=== PATIENT | female | born 1990 | race American Indian/Alaskan Native ===

== ENCOUNTER 2021-02-20 00:04 | Inpatient (IN) | payer MEDICAID ==
[2021-02-20] MEDS ORDERED: BUTORPHANOL 2 MG/1 ML INJ IV PRN ×3 (00:51→02:00)
[2021-02-20] MEDS ORDERED: CARBOPROST TROMETHAMINE 250 MCG/1 ML INJ IM PRN ×2 (00:51→02:00)
[2021-02-20] MEDS ORDERED: METHYLERGONOVINE MALEATE 0.2 MG/ML VIAL IM PRN (00:51)
[2021-02-20] MEDS ORDERED: MINERAL OIL 30 ML ORAL LIQD PO PRN (00:51)
[2021-02-20] MEDS ORDERED: ePHEDrine SULFATE 50 MG/1 ML INJ IV PRN ×2 (00:51→10:56)
[2021-02-20] MEDS ORDERED: fentaNYL 100 MCG/2 ML INJ IV PRN ×2 (00:51→02:00)
[2021-02-20] MEDS ORDERED: ACETAMINOPHEN 325 MG TAB PO PRN ×3 (00:51→16:10)
[2021-02-20] MEDS ORDERED: miSOPROStol 200 MCG TAB PR PRN (00:51)
[2021-02-20] MEDS ORDERED: LIDOCAINE (2%) 20 MG/1 ML VIAL 20 ML MDV INFILTRATI ONE ×2 (00:51→14:09)
[2021-02-20] MEDS ORDERED: LOPERAMIDE 2 MG CAP PO PRN ×2 (00:51→02:00)
[2021-02-20] MEDS ORDERED: OXYTOCIN 10 UNIT/1 ML INJ IM PRN ×2 (00:51→02:00)
[2021-02-20] MEDS ORDERED: TERBUTALINE 1 MG/1 ML INJ SUB-Q PRN (00:51)
[2021-02-20 00:59] LABS: Hemoglobin 11.4 gm/dl (10.1-14.3); Mean Corpuscular HGB Conc 35 % (30-34); Mean Corpuscular Volume 96 fl (79-97); Platelet Count 175 K/mm3 (140-440); Red Blood Count 3.45 M/mm3 (3.65-5.03); Red Cell Distribution Width 13.4 % (13.2-15.2)
[2021-02-20] MEDS ORDERED: OXYTOCIN DRIP 30 UNITS/500 ML BAG IV SCH ×3 (01:00→02:00)
--- NOTE | 2021-02-20 02:12 | History and Physical Report ---
History of Present Illness Date of examination: 02/20/21 Date of admission: 02/20/21 00:51 Chief complaint: c/o SROM and occ uc History of present illness: 30 y/o presents to [facility] @ 39.3 wks with c/o SROM with occ uc. She denies VB and admits to active FM. Pt [facility] @ 26 2/7 wks. 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 Pt had marginal placenta previa which has resolved. She is a smoker. Reports no surgical hx. Family hx of Leukemia. Her GBS is neg. Pt was admitted to L&D for augmentation. Past History Past Medical History: other (anemia, + AB SCREEN aNTI Luciana, OBESITY, S>D) Past Surgical History: no surgical history CASE FINISHER History: chlamydia, herpes, trichomonas Family/Genetic History: other (LEUKEMIA) Social history: single, smoking, full code - Obstetrical History Expected Date of Delivery: 02/24/21 Actual Gestation: 39 Week(s) 3 Day(s) : 1 Para: 0 Medications and Allergies Allergies Allergy/AdvReac Type Severity Reaction Status Date / Time No Known Allergies Allergy Unverified 02/19/21 21:37 Active Meds: Active Medications Acetaminophen (Acetaminophen 325 Mg Tab) 650 mg PO Q4H PRN PRN Reason: Pain, Mild (1-3) Acetaminophen (Acetaminophen 325 Mg Tab) 650 mg PO Q4H PRN PRN Reason: Pain, Mild (1-3) Butorphanol Tartrate (Butorphanol 2 Mg/1 Ml Inj) 1 mg IV Q2H PRN PRN Reason: Pain, Moderate(4-6) LABOR PAIN Butorphanol Tartrate (Butorphanol 2 Mg/1 Ml Inj) 2 mg IV Q2H PRN PRN Reason: Pain , Severe (7-10) Butorphanol Tartrate (Butorphanol 2 Mg/1 Ml Inj) 1 mg IV Q2H PRN PRN Reason: Pain, Moderate(4-6) LABOR PAIN Butorphanol Tartrate (Butorphanol 2 Mg/1 Ml Inj) 2 mg IV Q2H PRN PRN Reason: Pain , Severe (7-10) Carboprost Tromethamine (Carboprost Tromethamine 250 Mcg/1 Ml Inj) 250 mcg IM ONCE PRN PRN Reason: Uterine Bleeding Carboprost Tromethamine (Carboprost Tromethamine 250 Mcg/1 Ml Inj) 250 mcg IM ONCE PRN PRN Reason: Uterine Bleeding Ephedrine Sulfate (Ephedrine Sulfate 50 Mg/1 Ml Inj) 10 mg IV Q2M PRN PRN Reason: Hypotension Fentanyl (Fentanyl 100 Mcg/2 Ml Inj) 100 mcg IV Q2H PRN PRN Reason: Pain,Severe (7-10) LABOR PAIN Fentanyl (Fentanyl 100 Mcg/2 Ml Inj) 100 mcg IV Q2H PRN PRN Reason: Pain,Severe (7-10) LABOR PAIN Oxytocin/Sodium Chloride (Pitocin/Ns 30 Unit/500ml) 30 units in 500 mls @ 2 mls/hr IV TITR RENNY; Protocol Last Admin: 02/20/21 02:01 Dose: 2 mls/hr, 2 mls/hr Documented by: Lactated Ringer's (Lactated Ringers) 1,000 mls @ 125 mls/hr IV DIRECT RENNY Last Admin: 02/20/21 02:00 Dose: 125 mls/hr Documented by: Oxytocin/Sodium Chloride (Pitocin/Ns 30 Unit/500ml) 30 units in 500 mls @ 40 mls/hr IV TITR RENNY; Protocol Oxytocin/Sodium Chloride (Pitocin/Ns 30 Unit/500ml) 30 units in 500 mls @ 2 mls/hr IV TITR RENNY; Protocol Loperamide HCl (Loperamide 2 Mg Cap) 2 mg PO ONCE PRN PRN Reason: give with Hemabate Loperamide HCl (Loperamide 2 Mg Cap) 2 mg PO ONCE PRN PRN Reason: give with Hemabate Methylergonovine Maleate (Methylergonovine Maleate 0.2 Mg/Ml Vial) 0.2 mg IM ONCE PRN PRN Reason: Uterine Bleeding Mineral Oil (Mineral Oil 30 Ml Oral Liqd) 30 ml PO QHS PRN PRN Reason: Constipation Misoprostol (Misoprostol 200 Mcg Tab) 800 mcg AK ONCE PRN PRN Reason: Uterine Bleeding Oxytocin (Oxytocin 10 Unit/1 Ml Inj) 10 unit IM ONCE PRN PRN Reason: Uterine Bleeding Oxytocin (Oxytocin 10 Unit/1 Ml Inj) 10 unit IM ONCE PRN PRN Reason: Uterine Bleeding Terbutaline Sulfate (Terbutaline 1 Mg/1 Ml Inj) 0.25 mg SUB-Q ONCE PRN PRN Reason: Hyperstimulation/Hypertonicity Review of Systems All systems: negative Eyes: deferred Ears, nose, mouth and throat: deferred Breasts: normal Genitourinary: normal appearance Rectal Exam: normal exam-external/orifice - Vital Signs Vital signs: Vital Signs Pulse Pulse Ox 89 98 02/20/21 01:26 02/20/21 01:26 Temp Pulse Resp BP Pulse Ox 98.3 F 92 H 120/72 98 02/20/21 01:29 02/20/21 02:01 02/20/21 01:28 02/20/21 02:01 - Physical Exam Breasts: Positive: normal Abdomen: Positive: normal appearance, soft, normal bowel sounds Genitourinary (Female): Positive: normal external genitalia, normal perenium Vulva: both: normal Vagina: Positive: normal moisture Uterus: Positive: enlarged, normal contour, other (GRAVID) Adnexa: both: normal Anus/Rectum: Positive: normal perianal skin Extremities: Positive: normal - Obstetrical FHR: auscultation normal, category 1 Uterine Contraction Monitor Mode: External Cervical Dilatation: 1 Cervical Effacement Percentage: 50 station: -3 Uterine Contraction Pattern: Irregular Uterine Tone Measurement Phase: Resting Uterine Contraction Intensity: Mild Results Result Diagrams: 02/20/21 00:30 Abnormal lab results 02/20/21 Range/Units 00:30 RBC 3.45 L (3.65-5.03) M/mm3 MCH 33 H (28-32) pg MCHC 35 H (30-34) % All other labs normal. Assessment and Plan A: IUP@ 39.3 wks with SROM (cl) + AB screen Anti Luciana HO Anemia HSV II Obesity S>D 38 % tile 01/01 Smoker GBS neg P: Admit to L&D for augmentation Continuous monitoring Pain med/Epidural prn Pitocin augmentation Anticipate - Patient Problems (1) Supervision of normal IUP (intrauterine ) in primigravida Current Visit: Yes Status: Acute
[2021-02-20] MEDS: LACTATED RINGERS 1,000 ML IV SCH ×3 (02:30→11:43)
[2021-02-20] MEDS: BUTORPHANOL 2 MG/1 ML INJ IV PRN ×2 (05:46→08:10)
[2021-02-20] MEDS ORDERED: NALOXONE 2 MG/2 ML INJ IV PRN (10:56)
--- NOTE | 2021-02-20 10:58 | Anesthesia Consultation ---
Anesthesia Consult and Med Hx Date of service: 02/20/21 - Airway Anesthetic Teeth Evaluation: Poor ROM Head & Neck: Adequate Mental/Hyoid Distance: Adequate Mallampati Class: Class III Intubation Access Assessment: Possibly Difficult - Pulmonary Exam CTA: Yes - Cardiac Exam Cardiac Exam: RRR - Pre-Operative Health Status ASA Pre-Surgery Classification: ASA3 Proposed Anesthetic Plan: Epidural - Pulmonary Hx Smoking: Yes (quit 2019) Hx Asthma: No Hx Respiratory Symptoms: No SOB: No COPD: No Home Oxygen Therapy: No Hx Pneumonia: No Hx Sleep Apnea: No - Cardiovascular System Hx Hypertension: No Hx Coronary Artery Disease: No Hx Heart Attack/AMI: No Hx Angina: No Hx Percutaneous Transluminal Coronary Angioplasty (PTCA): No Hx Cardia Arrhythmia: No Hx Pacemaker: No Hx Internal Defibrillator: No Hx Valvular Heart Disease: No Hx Heart Murmur: No Hx Peripheral Vascular Disease: No - Central Nervous System Hx Neuromuscular Disorder: No Hx Seizures: No CVA: No Hx Back Pain: Yes Hx Psychiatric Problems: No - Gastrointestinal Hx Ulcer: No Hx Gastroesophageal Reflux Disease: Yes - Endocrine Hx Renal Disease: No Hx End Stage Renal Disease: No Hx Cirrhosis: No Hx Liver Disease: No Hx Insulin Dependent Diabetes: No Hx Non-Insulin Dependent Diabetes: No Hx Thyroid Disease: No Hx Hypothyroidism: No Hx Hyperthyroidism: No - Hematic Hx Anemia: No Hx Sickle Cell Disease: No - Other Systems Hx Alcohol Use: No Hx Substance Use: No Hx Cancer: No Hx Obesity: Yes
[2021-02-20] MEDS ORDERED: fentaNYL-BUPIV 2 MCG/ML-0.125% 200 MCG/100 ML BAG EPIDURAL SCH (11:00)
--- NOTE | 2021-02-20 11:19 | Progress Note ---
Labor Epidural - Labor Epidural Start Time: 10:00 Stop Time: 10:11 Performed by:: DEANA RAMÍREZ Procedure: Patient is requesting a laboring epidural for laboring pain. Patient IDed, H&P reviewed, all questions and concerns were answered, and consent was signed. Timeout was performed at bedside. Patient in sitting position. Sterile prep and drape was performed. [3] ml of 1% lidocaine skin wheal at L[3]- L [4]. 18- gauge Skinny epidural needle was advanced to loss of resistance with saline technique 7cm. Negative CSF negative blood. Epidural catheter advanced to [12] centimeters. [NEGATIVE] Aspiration [NEGATIVE] test dose. Sterile dressing applied. Patient tolerated procedure.
--- NOTE | 2021-02-20 11:31 | Event Note ---
Date: 02/20/21 Assumed care of patient at 10:30 AM. Patient has just received epidural. SVE /-2. Clear amniotic fluid seen leaking from vagina. Reassuring FHR tracing.
[2021-02-20] MEDS ORDERED: valACYclovir 500 MG TAB PO SCH (12:00)
--- NOTE | 2021-02-20 13:32 | Event Note ---
Date: 02/20/21 SVE .
[2021-02-20] MEDS ORDERED: BENZOCAINE/MENTHOL 20/0.5% TOP SPRAY 56 GM TP PRN (16:10)
[2021-02-20] MEDS ORDERED: MAGNESIUM HYDROXIDE (MOM) ORAL LIQD UDC PO PRN (16:10)
[2021-02-20] MEDS ORDERED: diphenhydrAMINE 25 MG CAP PO PRN (16:10)
[2021-02-20] MEDS ORDERED: WITCH HAZEL/ GLYCERIN PAD TP PRN (16:10)
[2021-02-20] MEDS ORDERED: LANOLIN/ZINC/DIMETHICONE (LANSINOH) 7 GM TP PRN (16:10)
--- NOTE | 2021-02-20 16:14 | Procedure Note ---
OB Delivery Note - Delivery Date of Delivery: 02/20/21 - Vaginal Delivery presentation: vertex Delivery position: OA Intrapartum events: shoulder dystocia Delivery induction: none Delivery augmentation: pitocin Delivery monitor: external FHT, external uterine Route of delivery: Delivery placenta: spontaneous Delivery cord: nuchal cord, 3 umbilical vessels Episiotomy: midline Delivery repair: vicryl Anesthesia: epidural Delivery comments: Spontaneous vaginal delivery at 14:51 of liveborn male weighing 8 lb. over 2nd degree midline episiotomy with apgars of 8/9. Epidural anesthesia. Deep variable FHR decelerations just prior to delivery. Second degree midline episiotomy performed to expedite delivery. Tight nuchal cord noted at delivery, reduced manually. Mild right anterior shoulder dystocia, resolved with McRobert's maneuver, rotation of shoulders, and suprapubic pressure. Head to body delivery interval was less than 1 minute. Baby placed skin to skin with mom immediately after delivery. 3 vessel cord double clamped and cut and baby taken to radiant warmer. Baby dried with warm blankets, suctioned with bulb syringe and stimulated. Spontaneous cry and respirations. Spontaneous delivery of intact placenta and membranes by huerta mechanism. EBL 300 cc. Pitocin to IV fluids after delivery of placenta. Fundus firm and midline. 2nd degree midline episio bryon repaired with 2-0 and 3-0 vicryl in usual sterile fashion. No other lacerations noted. Vaginal sweep negative. Sponge count correct. Mother and baby stable in birthing room. Baby moving all extremities well.
--- NOTE | 2021-02-20 20:37 | Post Anesthesia Evaluation ---
- Post Anesthesia Evaluation Patient Participated: Yes Airway Patent: Yes Stable Respiratory Function: Yes Nausea/Vomiting: No Temp > 96.8F: Yes Pain Manageable: Yes Adequeate Hydration: Yes Anesthesia Complications: No Block Receding Appropriately: Yes Patient on Ventilator: No
[2021-02-20] MEDS: HYDROcodone/ACETAMINOPHEN 5-325 MG TAB PO PRN (20:50)
[2021-02-20] MEDS: DOCUSATE SODIUM 100 MG CAP PO SCH (21:50)
[2021-02-20] MEDS: IBUPROFEN 600 MG TAB PO SCH (23:20)
[2021-02-21] MEDS: HYDROcodone/ACETAMINOPHEN 5-325 MG TAB PO PRN ×3 (06:00→22:05)
--- NOTE | 2021-02-21 06:26 | Progress Note ---
Assessment and Plan PPD#1 SAVD doing well 1. Pt educated on pain meds available prn 2. Routine care and await CBC 3. Will discharge in am if stable. Plan of care discussed and pt agreeable. Subjective Date of service: 02/21/21 Principal diagnosis: PPD#1 Interval history: pt c/o pelvic cramping and last pain med taken 10hrs ago. pt is not breast feeding. Vaginal bleeding minimal. Voiding without any difficulty. Objective - Constitutional Vitals: Vital Signs - 12hr 02/20/21 02/20/21 02/21/21 20:16 20:45 00:00 Temperature 99.6 F 98.6 F Pulse Rate 107 H 83 Respiratory 20 16 Rate Blood Pressure 121/70 Blood Pressure 111/62 [Right] O2 Sat by Pulse 96 Oximetry O2 Sat by Pulse 100 Oximetry [ Bilateral] 02/21/21 04:00 Temperature 98.6 F Pulse Rate 74 Respiratory 16 Rate Blood Pressure Blood Pressure 108/79 [Right] O2 Sat by Pulse Oximetry O2 Sat by Pulse Oximetry [ Bilateral] General appearance: Present: no acute distress - Breasts Breasts: normal - Cardiovascular Rhythm: regular Extremities: no ischemia - Gastrointestinal General gastrointestinal: Present: non-tender - Genitourinary Female genitourinary: other (Fundus firm 3cm below the umbilicus) - Neurologic Neurologic: CNII-XII intact - Psychiatric Psychiatric: appropriate mood/affect - Labs CBC & Chem 7: 02/20/21 00:30 Medications & Allergies - Medications Allergies/Adverse Reactions: Allergies No Known Allergies Allergy (Unverified 02/19/21 21:37) Home Medications: Home Medications Medication Instructions Recorded Confirmed Last Taken Type Valacyclovir HCl [Valacyclovir] 1,000 mg PO DAILY 02/20/21 02/20/21 02/20/21 History Active Medications: Generic Name Dose Route Start Last Admin Trade Name Freq PRN Reason Stop Dose Admin Hydrocodone Bitart/Acetaminophen 2 each 02/20/21 16:10 02/20/21 20:50 Hydrocodone/Acetaminophen 5-325 Mg Tab PO 2 each Q6H PRN Administration Pain, Moderate (4-6) Benzocaine/Menthol 1 spray 02/20/21 16:10 Benzocaine/Menthol 20/0.5% Top [place] 56 Gm TP PRN PRN Episiotomy Pain Diphenhydramine HCl 25 mg 02/20/21 16:10 Diphenhydramine 25 Mg Cap PO Q6H PRN Itching Docusate Sodium 100 mg 02/20/21 22:00 02/20/21 21:50 Docusate Sodium 100 Mg Cap PO 100 mg BID RENNY Administration Ibuprofen 600 mg 02/20/21 17:00 02/20/21 23:20 Ibuprofen 600 Mg Tab PO 600 mg Q6H RENNY Administration Magnesium Hydroxide 30 ml 02/20/21 16:10 Magnesium Hydroxide (Mom) Oral Liqd Udc PO HS PRN Constipation Multi-Ingredient Ointment 1 applic 02/20/21 16:10 Lanolin/Zinc/Dimethicone (Lansinoh) 7 Gm TP PRN PRN Sore Nipples Sodium Chloride 10 ml 02/20/21 17:00 Sodium Chloride 0.9% 10 Ml Flush Syringe IV 02/21/21 16:59 PRN NR Witch Anne/Glycerin 1 each 02/20/21 16:10 Witch Anne/ Glycerin Pad TP PRN PRN Hemorrhoid/cleansing/soothing
[2021-02-21 08:18] LABS: Hematocrit 31.2 % (30.3-42.9); Hemoglobin 10.3 gm/dl (10.1-14.3)
[2021-02-21] MEDS: DOCUSATE SODIUM 100 MG CAP PO SCH ×2 (09:30→22:05)
[2021-02-21] MEDS: IBUPROFEN 600 MG TAB PO SCH (22:02)
[2021-02-22] MEDS: IBUPROFEN 600 MG TAB PO SCH ×2 (05:51→12:32)
--- NOTE | 2021-02-22 10:03 | Progress Note ---
Assessment and Plan A: day 2 S/P . Anemia. P: Discharge patient home today. Discussed with patient discharge instructions and warning signs. Advised patient to continue taking her vitamins and iron supplements at home. Advised patient to avoid intercourse, lifting, housework. Advised patient to follow up at [facility] office in 2 days for BP check. Patient voiced understanding of all instructions. Subjective - Subjective Date of service: 02/22/21 Principal diagnosis: PPD#2 Interval history: Patient desires discharge today. Patient reports: appetite normal, voiding normally, pain well controlled, flatus, ambulating normally, no dizzy ambulation, no nauseated : doing well Objective - Vital Signs Latest vital signs: Vital Signs Temp Pulse Resp BP Pulse Ox Pulse Ox 02/22/21 08:10 98 02/22/21 08:03 97.8 F 70 16 113/74 100 02/22/21 06:42 18 02/22/21 05:51 18 02/22/21 00:26 98.1 F 74 20 105/66 100 02/21/21 23:05 18 02/21/21 22:05 18 02/21/21 22:02 18 02/21/21 20:59 100 02/21/21 16:10 98.2 F 77 20 107/78 100 02/21/21 14:41 20 02/21/21 12:26 98.4 F 89 20 107/62 95 Intake and Output 02/21/21 02/22/21 02/22/21 23:59 07:59 15:59 Intake Total 720 Balance 720 Intake: Oral 720 Other: Total, Intake Amount 240 # Voids Void 1 - Exam Cardiovascular: Present: Regular rate Lungs: Present: Clear to auscultation Abdomen: Present: normal appearance, soft, normal bowel sounds. Absent: di stention, tenderness, guarding, rigidity Uterus: Present: normal, firm, fundal height below umbilicus. Absent: bogginess, tenderness Extremities: Present: normal. Absent: tenderness, edema
--- NOTE | 2021-02-22 10:11 | Discharge Summary ---
Providers - Providers Date of Admission: 02/20/21 00:51 Date of discharge: 02/22/21 Attending physician: ROB YOUNG MD Primary care physician: ROB YOUNG MD Hospitalization Reason for admission: active labor, rupture of membranes Delivery: Episiotomy: midline Other procedures: none complications: none Discharge diagnosis: IUP at term delivered [place] baby: male Pertinent studies: Labs Hospital course: Mild shoulder dystocia at delivery. Formation and repair of 2nd degree midline episiotomy. Anemia , treated with oral iron. Condition at discharge: Good Disposition: 01 HOME / SELF CARE / HOMELESS - Discharge Diagnoses (1) Term delivered Status: Acute (2) Anemia Status: Acute Plan - Provider Discharge Summary Activity: routine, no sex for 6 weeks, no heavy lifting 4 weeks, no strenuous exercise Diet: routine Instructions: routine Additional instructions: Continue taking your vitamin and iron supplement at home. Follow up at [facility] in 2 days. Call your doctor immediately for: * Fever > 100.5 * Heavy vaginal bleeding ( >1 pad per hour) * Severe persistent headache * Shortness of breath * Reddened, hot, painful area to leg or breast - Follow up plan Follow up: ROB YOUNG MD [Primary Care Provider] - 48 Hours
[2021-02-22 12:40] VITALS: BP 121/77
== END 2021-02-22 13:30 | disposition home or self-care (01) | DRG 774 ==
LOC: TRG 00:04 → APU 00:46 → LD 00:51 → TRG 00:51 → OB 17:26
PROC: 10E0XZZ Delivery of Products of Conception, External Approach (ICD-10-PCS; principal; 2021-02-20)
PROC: 3E0R3BZ Introduction of Anesthetic Agent into Spinal Canal, Percutaneous Approach (ICD-10-PCS; 2021-02-20)
PROC: 00HU33Z Insertion of Infusion Device into Spinal Canal, Percutaneous Approach (ICD-10-PCS; 2021-02-20)
PROC: 0W8NXZZ Division of Female Perineum, External Approach (ICD-10-PCS; 2021-02-20)
DX: O69.81X0 Labor and delivery complicated by cord around neck, without compression, not applicable or unspecified (principal); O98.52 Other viral diseases complicating childbirth; O99.214 Obesity complicating childbirth; Z37.0 Single live birth; O99.02 Anemia complicating childbirth; D64.9 Anemia, unspecified; Z3A.39 39 weeks gestation of pregnancy; B00.9 Herpesviral infection, unspecified; Z87.891 Personal history of nicotine dependence; O99.62 Diseases of the digestive system complicating childbirth; K21.9 Gastro-esophageal reflux disease without esophagitis; O66.0 Obstructed labor due to shoulder dystocia; Z20.822 Contact with and (suspected) exposure to COVID-19
CPT/HCPCS: 36415; 59025; 76815; 76819; 85014; 85018; 85027; 86592; 86706; 86803; 86850; 86870; 86900; 86901; 87806; 96360; 96361; 96375; G0378; J0595; J2590; J3010; J7120; U0003